=== PATIENT | female | born 2000 | race Two or more races ===

== ENCOUNTER 2023-07-17 10:20 | Inpatient (IN) | payer MEDICAID, OTHER ==
[~2023-07-17] VITALS: Ht 165.1 cm; Wt 83.9 kg
[2023-07-17] MEDS ORDERED: WITCH HAZEL-GLYCERIN PAD TOP PRN (12:00)
[2023-07-17] MEDS ORDERED: PHISODERM TOP SOLN 240ML BTL TOP PRN (12:00)
[2023-07-17] MEDS ORDERED: DERMOPLAST 60ML BOTTLE TOP PRN (12:00)
[2023-07-17] MEDS ORDERED: LACT. RINGERS/OXYTOCIN 20UNITS 500 ML IV ONE ×2 (12:00→12:30)
[2023-07-17] MEDS ORDERED: LIDOCAINE 2%HCL (LOCAL ANESTH.) INJ 20ML MDV IJ PRN (12:00)
[2023-07-17] MEDS ORDERED: LACTATED RINGER'S 1,000 ML IV SCH (12:00)
[2023-07-17] MEDS ORDERED: PROMETHAZINE HCL 25 MG/ML 1ML IV PRN (12:00)
[2023-07-17] MEDS ORDERED: METHYLERGONOVINE MALEATE 0.2 MG/ML AMP IM ONE (12:00)
[2023-07-17] MEDS ORDERED: BUTORPHANOL TARTRATE 2 MG/1 ML VIAL IV PRN ×2 (12:00)
[2023-07-17 12:25] LABS: Fern Testing Positive
[2023-07-17 12:25] LABS: Amphetamine Screen, Urine Neg (NEGATIVE)
[2023-07-17 12:26] LABS: Barbiturate Scree,Urine Neg (NEGATIVE); Benzodiazephine Screen, Urine Neg (NEGATIVE); Cannabinoid Screen, Urine Neg (NEGATIVE); Cocaine Screen, Urine Neg (NEGATIVE); Opiate Scree,Urine Neg (NEGATIVE); Phencyclidine Screen, Urine Neg (NEGATIVE)
[2023-07-17 12:41] LABS: Basophils # (auto) 0 10 ^3/uL (0-0.2); Basophils % (auto) 0.3 % (0.0-2.0); Eosinophils # (auto) 0 10 ^3/uL (0-0.8); Eosinophils % (auto) 0.1 % (0.0-7.0); Hematocrit 35.4 % (36.0-46.0); Hemoglobin 11.6 g/dL (12.2-16.2); Lymphocytes # (auto) 1.8 10 ^3/uL (0.4-5.4); Lymphocytes % (auto) 20.8 % (10.0-50.0); Mean Corpuscular Hemoglobin 28.7 pg (28.0-32.0); Mean Corpuscular Hgb Conc. 32.9 g/dL (32.0-36.0); Mean Corpuscular Volume 87.1 fL (80.0-100.0); Monocytes # (auto) 0.5 10 ^3/uL (0-1.3); Monocytes % (auto) 5.9 % (0.0-12.0); Neutrophils # (auto) 6.5 10 ^3/uL (1.6-8.6); Neutrophils % (auto) 72.9 % (37.0-80.0); Red Blood Cells 4.06 10^6/uL (4.0-5.20); Red Cell Distribution Width 14.5 % (11.8-14.3); White Blood Cell 8.9 10^3/uL (4.4-10.8)
[2023-07-17 13:11] LABS: Urine Bacteria FEW /hpf (None Seen); Urine Blood 2+ /uL (Negative); Urine Clarity HAZY (Clear); Urine Color Yellow (Yellow); Urine Protein, UAD 1+ (Negative); Urine Specific Gravity 1.021 (1.001-1.035); Urine Urobilinogen Normal (Negative); Urine WBC 5 /hpf (0 - 5); Urine pH 7.5 (5.0-8.0)
[2023-07-17 13:32] LABS: INR 0.92 (0.9-1.15); Partial Thromboplastin Time 23.6 SEC (24.5-34.5); Prothrombin Time 9.7 sec (9.3-11.8)
[2023-07-17 13:33] LABS: Alanine Aminotransferase 26 U/L (7-40); Albumin 4.3 g/dL (3.2-4.8); Alkaline Phosphatase 190 U/L (46-116); Anion Gap 11 (5-15); Aspartate Aminotransferase 33 U/L (13-40); BUN/Creatinine Ratio 14.7 (10.0-20.0); Blood Urea Nitrogen 10 mg/dL (9-23); Calcium 9.2 mg/dL (8.5-10.1); Carbon Dioxide 22 mmol/L (20-30); Chloride 104 mmol/L (98-107); Glucose 83 mg/dL (74-106); Sodium 137 mmol/L (136-145)
[2023-07-17 13:34] LABS: Bilirubin, Total 0.7 mg/dL (0.2-1.0); Total Protein 7.1 g/dL (5.7-8.2)
[2023-07-17] MEDS ORDERED: IBUPROFEN 600 MG TAB PO PRN (14:00)
[2023-07-17] MEDS ORDERED: ACETAMINOPHEN 325 MG TAB PO PRN (14:00)
[2023-07-17] MEDS ORDERED: ONDANSETRON ODT 4 MG TAB PO PRN (14:00)
[2023-07-17] MEDS ORDERED: PREN-96 PO (15:30)
[2023-07-17 16:00] VITALS: BP 125/75; PULSE 65; RESP 20; TEMP 98
[2023-07-17 19:00] VITALS: BP 124/59; PULSE 62; RESP 18; TEMP 98.2; O2SAT 97
[2023-07-17] MEDS ORDERED: DOCUSATE SOD 100 MG CAP PO SCH (22:00)
[2023-07-17 22:30] VITALS: BP 118/61; PULSE 60; RESP 18; TEMP 98.5; O2SAT 98
[2023-07-18 03:05] VITALS: BP 124/60; PULSE 67; RESP 18; TEMP 98.7; O2SAT 97
[2023-07-18 07:00] VITALS: BP 121/68; PULSE 57; RESP 17; TEMP 97.9; O2SAT 98
[2023-07-20 06:06] LABS: RPR Non Reactive (Non Reactive)
[2023-07-20 19:06] LABS: Treponema pallidum Ab (FTA-Ab) Non Reactive (Non Reactive)
== END 2023-07-18 14:19 | disposition home or self-care (01) | DRG 560 ==
LOC: LDRP 10:20 → OBSVTOIN 11:51 → LDRP 16:26
PROVIDERS: ADMIT Obstetrics & Gynecology; ATTEND Obstetrics & Gynecology
PROC: 10E0XZZ Delivery of Products of Conception, External Approach (ICD-10-PCS; principal; 2023-07-17)
PROC: 0HQ9XZZ Repair Perineum Skin, External Approach (ICD-10-PCS; 2023-07-17)
DX: O70.0 First degree perineal laceration during delivery (principal); Z37.0 Single live birth; Z3A.39 39 weeks gestation of pregnancy
CPT/HCPCS: 36415; 59025; 59409; 80053; 80307; 81001; 81002; 84112; 85025; 85610; 85730; 86592; 86850; 86900; 86901; 94760; 96360; 96361; 96365; 96366; 96375; G0378; J2590